=== PATIENT | female | born 1990 | race Caucasian/White ===

== ENCOUNTER → 2025-01-02 | Outpatient (CLI) | payer BC, SELFPAY ==
[2025-01-02 12:57] LABS: T4 (Thyroxine) 7.4 mcg/dL (4.5-10.9); Thyroid Stimulating Hormone 1.13 uIU/mL (0.55-4.78)
== END | disposition home or self-care (01) ==
LOC: COPL 11:34
PROVIDERS: PCP Registered Nurse; Referring Provider Registered Nurse; Visit Provider Registered Nurse
DX: E07.9 Disorder of thyroid, unspecified (principal)
CPT/HCPCS: 36415; 84436; 84443